=== PATIENT | female | born 1975 | race Hispanic/Latino ===

== ENCOUNTER → 2025-02-28 | Outpatient (CLI) | payer SELFPAY ==
[2025-02-28 13:34] LABS: AST(SGOT) 18 U/L (<=31); Alanine Aminotransfer ALT/SGPT 12 U/L (<=34); Albumin, Serum 4.2 g/dL (3.5-5.0); Alkaline Phosphatase 74 U/L (35-104); Anion Gap 9 (5-15); BUN 13 mg/dL (4-19); BUN/Creat Ratio 15.7 RATIO (10-20); Calcium,Total 9.5 mg/dL (7.6-11.0); Carbon Dioxide 24.2 mmol/L (21.0-32.0); Chloride 106 mmol/L (98-108); Globulin 2.8 g/dL (2.2-4.2); Glucose 114 mg/dL (70-99); Potassium 4.2 mmol/L (3.3-5.1)
[2025-02-28 13:47] LABS: Cholesterol 244 mg/dL (<=200); Low Density Lipoprotein Calc. 167 mg/dL; Triglycerides 103 mg/dL; Very Low Density Lipoprotein 21 mg/dL (5-40); cholesterol:hdl ratio screen 4.16
== END | disposition home or self-care (01) ==
LOC: VSLAB 08:28
PROVIDERS: PCP Nurse Practitioner Family; Visit Provider Nurse Practitioner Family
DX: Z13.1 Encounter for screening for diabetes mellitus (principal); Z13.220 Encounter for screening for lipoid disorders; F41.8 Other specified anxiety disorders
CPT/HCPCS: 36415; 80053; 80061; 83036

== ENCOUNTER 2025-03-14 16:43 | Outpatient (CLI) | payer SELFPAY ==
--- OUTSIDE RECORDS SUMMARY | 2025-03-14 16:58 | XMS RPT_ITS | CCD ---
Author Organization [facility] Care Team Providers Care Signals Collector/Analyst Name Role Phone Unavailable Primary Care Provider LOAN Maguire Referring LOAN Maguire Referring Mamie Jasso Attending Unavailable Mamie Powers Primary Care Unavailable Problems Problem Classification Problem Date Documented Da te Episodic/Chronic Nonmalignant breast conditions (1 source) Mastodynia; Translations: [Mastodynia] Onset: 05-31-2024 Episodic Other screening for suspected conditions (not mental disorders or infectious disease) (1 source) Encounter for screening for diabetes mellitus; Translations: [Encounter for screening for diabetes mellitus] Onset: 03-09-2025 Episodic Results Test Name Value Interpretation Reference Range Facility Comprehensive Metabolic Prof [facility] 02-28-2025 Albumin [Mass/Vol] 4.2 g/dL Normal 3.5-5.0 [facility] Comment on above: Performed By: #### L 500.4050, L501.9985, L500.4100 #### [facility] [address] [place], [address] Albumin/Globulin [Mass ratio] 1.5 {ratio} Normal 0.9-2.4 [facility] Comment on above: Performed By: #### L 500.4050, L501.9985, L500.4100 #### [facility] [address] [place], [address] ALK PHOS 74 U/L Normal 35-104 [facility] Comment on above: Performed By: #### L 500.4050, L501.9985, L500.4100 #### [facility] [address] [place], [address] ALT [Catalytic activity/Vol] 12 U/L Normal <=34 [facility] Comment on above: Performed By: #### L 500.4050, L501.9985, L500.4100 #### [facility] [address] [place], [address] AST [Catalytic activity/Vol] 18 U/L Normal <=31 [facility] Comment on above: Performed By: #### L 500.4050, L501.9985, L500.4100 #### [facility] [address] [place], [address] Bilirubin [Mass/Vol] 0.34 mg/dL Normal 0.00-1.[address] [facility] Comment on above: Performed By: #### L 500.4050, L501.9985, L500.4100 #### [facility] [address] [place], [address] BUN/CRE 15.7 RATIO Normal 10-20 [facility] Comment on above: Performed By: #### L 500.4050, L501.9985, L500.4100 #### [facility] [address] [place], [address] Calcium [Mass/Vol] 9.5 mg/dL Normal 7.6-11.0 [facility] Comment on above: Performed By: #### L 500.4050, L501.9985, L500.4100 #### [facility] [address] [place], [address] Chloride [Moles/Vol] 106 mmol/L Normal 98-[address] [facility] Comment on above: Performed By: #### L 500.4050, L501.9985, L500.4100 #### [facility] [address] [place], [address] CO2 [Moles/Vol] 24.2 mmol/L Normal 21.0-32.0 [facility] Comment on above: Performed By: #### L 500.4050, L501.9985, L500.4100 #### [facility] [address] [place], [address] Creatinine [Mass/Vol] 0.80 mg/dL Normal 0.70-1.20 [facility] Comment on above: Performed By: #### L 500.4050, L501.9985, L500.4100 #### [facility] [address] [place], [address] GAP 9 Normal 5-15 [facility] Comment on above: Performed By: #### L 500.4050, L501.9985, L500.4100 #### [facility] [address] [place], [address] GFR/1.73 sq M.predicted among non-blacks MDRD (S/P/Bld) [Vol rate/Area] 91 mL/min/{1.73_m2} Normal >60 [facility] Comment on above: Result Comment: mL/m in/1.73m2 CKD-EPI Creatinine Equation (2020) Performed By: #### L 500.4050, L501.9985, L500.4100 #### [facility] [address] [place], [address] Globulin (S) [Mass/Vol] 2.8 g/dL Normal 2.2-4.2 [facility] Comment on above: Performed By: #### L 500.4050, L501.9985, L500.4100 #### [facility] [address] [place], [address] Glucose [Mass/Vol] 114 mg/dL High 70-99 [facility] Comment on above: Performed By: #### L 500.4050, L501.9985, L500.4100 #### [facility] [address] [place], [address] Potassium [Moles/Vol] 4.2 mmol/L Normal 3.3-5.1 [facility] Comment on above: Performed By: #### L 500.4050, L501.9985, L500.4100 #### [facility] [address] [place], [address] Sodium [Moles/Vol] 139 mmol/L Normal 133-145 [facility] Comment on above: Performed By: #### L 500.4050, L501.9985, L500.4100 #### [facility] [address] [place], [address] T PROT 7.0 g/dL Normal 5.9-8.4 [facility] Comment on above: Performed By: #### L 500.4050, L501.9985, L500.4100 #### [facility] [address] [place], [address] Urea nitrogen [Mass/Vol] 13 mg/dL Normal 4-19 [facility] Comment on above: Performed By: #### L 500.4050, L501.9985, L500.4100 #### [facility] [address] [place], [address] Hemoglobin A1con 02-28-2025 HbA1c (Bld) [Mass fraction] 5.5 % Normal <=5.6 [facility] Comment on above: Result Comment: Norm al < 5.7 % Prediabetic 5.7 - 6.4 % Diabetic >or= 6.5 % Please note range changes. Performed By: #### L 500.4050, L501.9985, L500.4100 #### [facility] [address] [place], [address] Lipid Profileon 02-28-2025 CHOL:HDL 4.16 Normal [facility] Comment on above: Performed By: #### L 500.4050, L501.9985, L500.4100 #### [facility] [address] [place], [address] Cholesterol [Mass/Vol] 244 mg/dL High <=200 [facility] Comment on above: Result Comment: Chol esterol level, Desirable <200 mg/dL Borderline high cholesterol 200-239 mg/dL High cholesterol >=240 mg/dL Recommendations of the NCEP Adult Treatment Panel for the following risk-cutoff thresholds for the [place] population. Performed By: #### L 500.4050, L501.9985, L500.4100 #### [facility] [address] [place], [address] Cholesterol in HDL [Mass/Vol] 59 mg/dL Normal [facility] Comment on above: Result Comment: Mary onal Cholesterol Education Program (NCEP) guidelines: <40 mg/dL: Low HDL-cholesterol (major risk factor for CHD) >= 60 mg/dL: High HDL-cholesterol (negative risk factor for CHD) HDL-cholesterol is affected by a number of factors, e.g. smoking, exercise, hormones, sex and age. Performed By: #### L 500.4050, L501.9985, L500.4100 #### [facility] [address] [place], [address] Cholesterol in LDL [Mass/Vol] 167 mg/dL Normal [facility] Comment on above: Result Comment: Bord vqeolr=736-439 mg/dL Higher Lpfe=489 mg/dL or greater Oh Equation 2020 for LDL-C Performed By: #### L 500.4050, L501.9985, L500.4100 #### [facility] [address] [place], [address] Cholesterol in VLDL [Mass/Vol] 21 mg/dL Normal 5-40 [facility] Comment on above: Performed By: #### L 500.4050, L501.9985, L500.4100 #### [facility] [address] [place], [address] Triglyceride [Mass/Vol] 103 mg/dL Normal [facility] Comment on above: Result Comment: The drugs N-Acetylcysteine and Metamizole may falsely depress this assay. Normal range: <150 mg/dL Borderline High: 150-199 mg/dL High: 200-499 mg/dL Very High: >500 mg/dL Performed By: #### L 500.4050, L501.9985, L500.4100 #### [facility] [address] [place], [address] DBT Breast - bilateral diagn ostic for implanton 05-31-2024 IMPRESSION: There is no suspicious imaging finding to correspond with the focal pain in the upper outer quadrant of the right breast. Clinical follow up is recommended. There is no mammographic or sonographic evidence of malignancy in the imaged area. Return to annual screening mammogram is recommended. Annual mammogram will be due in 1 year. BI-RADS Category 1: Negative RISK: Based on the Tyrer-Cuzick (TC) risk assessment model, this patient has a 5.6% lifetime risk of developing breast cancer, meaning they are at average risk for developing breast cancer. However, this is only an estimate based on available history provided on the patient's questionnaire. We encourage all patients to talk with their providers about these results, further recommendations for managing breast health, and appropriate supplemental screening options if the patient has dense breast tissue. Interpreting Radiologist: Genna Pool M.D. Electronically signed on: 05/31/2024 IMPRESSION: There is no mammographic or sonographic evidence of malignancy in the imaged area. Return to annual screening mammogram is recommended. Annual mammogram will be due in 1 year. Test Clerk: REN Transcribe Date/Time: May 31 2024 12:30P Dictated by : GENNA POOL MD This examination was interpreted and the report reviewed and electronically signed by: GENNA POOL MD on May 31 2024 1:18PM [facility] RADIOLOGY [facility] * * *Final Report* * * DATE OF EXAM: May 31 2024 12:51PM LDW 0627 - LUIS ALBERTO DIAG Fausto MOMIN / PROCEDURE REASON: N64.4 Mastodynia * * * * Physician Interpretation * * * * [address] [address] #[id number] - [facility] PixelleG W VALENTINA LILIANE #[id number] - [facility] Fliplife BREAST LTD RT HISTORY: Patient is 48 years old and is seen for diagnostic evaluation of focal pain the right breast. Patient states no personal history of breast cancer. Patient states no personal history of other cancers. COMPARISON STUDIES: The present examination has been compared to a prior imaging study dated 05/31/2024 (ultrasound). MAMMOGRAM TECHNIQUE: The study was acquired using full field digital technology and interpreted from soft copy. Digital Breast Tomosynthesis (DBT) images were obtained and used to assist in the interpretation of this examination. MAMMOGRAM FINDINGS: The breasts are heterogeneously dense, which may obscure small masses. There are no suspicious mammographic findings to correspond with the focal pain in the upper outer quadrant of the right breast indicated by the triangle marker. No suspicious masses, calcifications or other abnormalities are seen in the left breast. ULTRASOUND TECHNIQUE: Targeted ultrasound of the indicated area was performed. Garcia scale images were saved. ULTRASOUND FINDINGS: There are no suspicious sonographic findings to correspond with the focal pain at the 10:00 - 11:00 position of the right breast. [facility] RADIOLOGY SY[facility] Provider, [facility] [place] - 05/31/2024 * * *Final Report* * * DATE OF EXAM: May 31 2024 12:51PM LDW 0627 - LUIS ALBERTO DIAG W VALENTINA LILIANE / PROCEDURE REASON: N64.4 Mastodynia * * * * Physician Interpretation * * * * [address] [address] #[id number] - LUIS ALBERTO DIAG W VALENTINA LILIANE #[id number] - [facility] Fli[employer]ife BREAST LTD RT HISTORY: Patient is 48 years old and is seen for diagnostic evaluation of focal pain the right breast. Patient states no personal history of breast cancer. Patient states no personal history of other cancers. COMPARISON STUDIES: The present examination has been compared to a prior imaging study dated 05/31/2024 (ultrasound). MAMMOGRAM TECHNIQUE: The study was acquired using full field digital technology and interpreted from soft copy. Digital Breast Tomosynthesis (DBT) images were obtained and used to assist in the interpretation of this examination. MAMMOGRAM FINDINGS: The breasts are heterogeneously dense, which may obscure small masses. There are no suspicious mammographic findings to correspond with the focal pain in the upper outer quadrant of the right breast indicated by the triangle marker. No suspicious masses, calcifications or other abnormalities are seen in the left breast. ULTRASOUND TECHNIQUE: Targeted ultrasound of the indicated area was performed. Garcia scale images were saved. ULTRASOUND FINDINGS: There are no suspicious sonographic findings to correspond with the focal pain at the 10:00 - 11:00 position of the right breast. IMPRESSION IMPRESSION: There is no suspicious imaging finding to correspond with the focal pain in the upper outer quadrant of the right breast. Clinical follow up is recommended. There is no mammographic or sonographic evidence of malignancy in the imaged area. Return to annual screening mammogram is recommended. Annual mammogram will be due in 1 year. BI-RADS Category 1: Negative RISK: Based on the Tyrer-Cuzick (TC) risk assessment model, this patient has a 5.6% lifetime risk of developing breast cancer, meaning they are at average risk for developing breast cancer. However, this is only an estimate based on available history provided on the patient's questionnaire. We encourage all patients to talk with their providers about these results, further recommendations for managing breast health, and appropriate supplemental screening options if the patient has dense breast tissue. Interpreting Radiologist: Genna Pool M.D. Electronically signed on: 05/31/2024 IMPRESSION: There is no mammographic or sonographic evidence of malignancy in the imaged area. Return to annual screening mammogram is recommended. Annual mammogram will be due in 1 year. Test Clerk: REN Transcribe Date/Time: May 31 2024 12:30P Dictated by : GENNA POOL MD This examination was interpreted and the report reviewed and electronically signed by: GENNA POOL MD on May 31 2024 1:18PM [facility] Radiology Study [facility]narrative) [facility] Ellis 2024 LUIS ALBERTO MOMIN * * *Final Report* * * DATE OF EXAM: May 31 2024 12:51PM LDW 0627 - LUIS ALBERTO MOMIN / PROCEDURE REASON: N64.4 Mastodynia * * * * Physician Interpretation * * * * [place] [address] #[id number] [facility] BLAYNE MOMIN #[id number] - [facility] US BREAST LTD RT HISTORY: Patient is 48 years old and is seen for diagnostic evaluation of focal pain the right breast. Patient states no personal history of breast cancer. Patient states no personal history of other cancers. COMPARISON STUDIES: The present examination has been compared to a prior imaging study dated 05/31/2024 (ultrasound). MAMMOGRAM TECHNIQUE: The study was acquired using full field digital technology and interpreted from soft copy. Digital Breast Tomosynthesis (DBT) images were obtained and used to assist in the interpretation of this examination. MAMMOGRAM FINDINGS: The breasts are heterogeneously dense, which may obscure small masses. There are no suspicious mammographic findings to correspond with the focal pain in the upper outer quadrant of the right breast indicated by the triangle marker. No suspicious masses, calcifications or other abnormalities are seen in the left breast. ULTRASOUND TECHNIQUE: Targeted ultrasound of the indicated area was performed. Garcia scale images were saved. ULTRASOUND FINDINGS: There are no suspicious sonographic findings to correspond with the focal pain at the 10:00 - 11:00 position of the right breast. IMPRESSION: There is no suspicious imaging finding to correspond with the focal pain in the upper outer quadrant of the right breast. Clinical follow up is recommended. There is no mammographic or sonographic evidence of malignancy in the imaged area. Return to annual screening mammogram is recommended. Annual mammogram will be due in 1 year. BI-RADS Category 1: Negative RISK: Based on the Tyrer-Cuzick (TC) risk assessment model, this patient has a 5.6% lifetime risk of developing breast cancer, meaning they are at average risk for developing breast cancer. However, this is only an estimate based on available history provided on the patient's questionnaire. We encourage all patients to talk with their providers about these results, further recommendations for managing breast health, and appropriate supplemental screening options if the patient has dense breast tissue. Interpreting Radiologist: Genna Pool M.D. Electronically signed on: 05/31/2024 IMPRESSION: There is no mammographic or sonographic evidence of malignancy in the imaged area. Return to annual screening mammogram is recommended. Annual mammogram will be due in 1 year. Test Clerk: REN Transcribe Date/Time: May 31 2024 12:30P Dictated by : GENNA POOL MD This examination was interpreted and the report reviewed and electronically signed by: GENNA POOL MD on May 31 2024 1:18PM EST [id number] CN Normal [facility] US BREAST LTD RTon 05-31 [facility] US BREAST LTD RT * * *Final Report* * * DATE OF EXAM: May 31 2024 1:09PM LDW 0594 - [facility] US BREAST LTD RT / PROCEDURE REASON: N64.4 Mastodynia * * * * Physician Interpretation * * * * [place] [address] #[id number] - [facility] CARLOSG W VALENTINA LILIANE #[id number] - [facility] US BREAST LTD RT HISTORY: Patient is 48 years old and is seen for diagnostic evaluation of focal pain the right breast. Patient states no personal history of breast cancer. Patient states no personal history of other cancers. COMPARISON STUDIES: The present examination has been compared to a prior imaging study dated 05/31/2024 (ultrasound). MAMMOGRAM TECHNIQUE: The study was acquired using full field digital technology and interpreted from soft copy. Digital Breast Tomosynthesis (DBT) images were obtained and used to assist in the interpretation of this examination. MAMMOGRAM FINDINGS: The breasts are heterogeneously dense, which may obscure small masses. There are no suspicious mammographic findings to correspond with the focal pain in the upper outer quadrant of the right breast indicated by the triangle marker. No suspicious masses, calcifications or other abnormalities are seen in the left breast. ULTRASOUND TECHNIQUE: Targeted ultrasound of the indicated area was performed. Garcia scale images were saved. ULTRASOUND FINDINGS: There are no suspicious sonographic findings to correspond with the focal pain at the 10:00 - 11:00 position of the right breast. IMPRESSION: There is no suspicious imaging finding to correspond with the focal pain in the upper outer quadrant of the right breast. Clinical follow up is recommended. There is no mammographic or sonographic evidence of malignancy in the imaged area. Return to annual screening mammogram is recommended. Annual mammogram will be due in 1 year. BI-RADS Category 1: Negative RISK: Based on the Tyrer-Cuzick (TC) risk assessment model, this patient has a 5.6% lifetime risk of developing breast cancer, meaning they are at average risk for developing breast cancer. However, this is only an estimate based on available history provided on the patient's questionnaire. We encourage all patients to talk with their providers about these results, further recommendations for managing breast health, and appropriate supplemental screening options if the patient has dense breast tissue. Interpreting Radiologist: Genna Pool M.D. Electronically signed on: 05/31/2024 IMPRESSION: There is no mammographic or sonographic evidence of malignancy in the imaged area. Return to annual screening mammogram is recommended. Annual mammogram will be due in 1 year. Test Clerk: REN Transcribe Date/Time: May 31 2024 1:04P Dictated by : GENNA POOL MD This examination was interpreted and the report reviewed and electronically signed by: GENNA POOL MD on May 31 2024 1:18PM EST [id number] CN Normal [facility] No Panel InformationOrdered By: Cc Provider on 05-31-2024 [facility] US Breast - right limitedon 05-31-2024 IMPRESSION: There is no suspicious imaging finding to correspond with the focal pain in the upper outer quadrant of the right breast. Clinical follow up is recommended. There is no mammographic or sonographic evidence of malignancy in the imaged area. Return to annual screening mammogram is recommended. Annual mammogram will be due in 1 year. BI-RADS Category 1: Negative RISK: Based on the Tyrer-Cuzick (TC) risk assessment model, this patient has a 5.6% lifetime risk of developing breast cancer, meaning they are at average risk for developing breast cancer. However, this is only an estimate based on available history provided on the patient's questionnaire. We encourage all patients to talk with their providers about these results, further recommendations for managing breast health, and appropriate supplemental screening options if the patient has dense breast tissue. Interpreting Radiologist: Genna Pool M.D. Electronically signed on: 05/31/2024 IMPRESSION: There is no mammographic or sonographic evidence of malignancy in the imaged area. Return to annual screening mammogram is recommended. Annual mammogram will be due in 1 year. Test Clerk: REN Transcribe Date/Time: May 31 2024 1:04P Dictated by : GENNA POOL MD This examination was interpreted and the report reviewed and electronically signed by: GENNA POOL MD on May 31 2024 1:18PM EST [facility] RADIOLOGY [facility] * * *Final Report* * * DATE OF EXAM: May 31 2024 1:09PM LDW 0594 - LUIS ALBERTO US BREAST LTD RT / PROCEDURE REASON: N64.4 Mastodynia * * * * Physician Interpretation * * * * [place] [id number] #[id number] - FZN BLAYNE MONTGOMERY LILIANE #[id number] - [facility] US BREAST LTD RT HISTORY: Patient is 48 years old and is seen for diagnostic evaluation of focal pain the right breast. Patient states no personal history of breast cancer. Patient states no personal history of other cancers. COMPARISON STUDIES: The present examination has been compared to a prior imaging study dated 05/31/2024 (ultrasound). MAMMOGRAM TECHNIQUE: The study was acquired using full field digital technology and interpreted from soft copy. Digital Breast Tomosynthesis (DBT) images were obtained and used to assist in the interpretation of this examination. MAMMOGRAM FINDINGS: The breasts are heterogeneously dense, which may obscure small masses. There are no suspicious mammographic findings to correspond with the focal pain in the upper outer quadrant of the right breast indicated by the triangle marker. No suspicious masses, calcifications or other abnormalities are seen in the left breast. ULTRASOUND TECHNIQUE: Targeted ultrasound of the indicated area was performed. Garcia scale images were saved. ULTRASOUND FINDINGS: There are no suspicious sonographic findings to correspond with the focal pain at the 10:00 - 11:00 position of the right breast. TEANECK RADIOLOGY SYNGO Provider, [facility] [place] - 05/31/2024 * * *Final Report* * * DATE OF EXAM: May 31 2024 1:09PM LDW 0594 - LUIS ALBERTO US BREAST LTD RT / PROCEDURE REASON: N64.4 Mastodynia * * * * Physician Interpretation * * * * [address] [address] #[id number] - ZXM BLAYNE MOMIN #[id number] - [facility] US BREAST LTD RT HISTORY: Patient is 48 years old and is seen for diagnostic evaluation of focal pain the right breast. Patient states no personal history of breast cancer. Patient states no personal history of other cancers. COMPARISON STUDIES: The present examination has been compared to a prior imaging study dated 05/31/2024 (ultrasound). MAMMOGRAM TECHNIQUE: The study was acquired using full field digital technology and interpreted from soft copy. Digital Breast Tomosynthesis (DBT) images were obtained and used to assist in the interpretation of this examination. MAMMOGRAM FINDINGS: The breasts are heterogeneously dense, which may obscure small masses. There are no suspicious mammographic findings to correspond with the focal pain in the upper outer quadrant of the right breast indicated by the triangle marker. No suspicious masses, calcifications or other abnormalities are seen in the left breast. ULTRASOUND TECHNIQUE: Targeted ultrasound of the indicated area was performed. Garcia scale images were saved. ULTRASOUND FINDINGS: There are no suspicious sonographic findings to correspond with the focal pain at the 10:00 - 11:00 position of the right breast. IMPRESSION IMPRESSION: There is no suspicious imaging finding to correspond with the focal pain in the upper outer quadrant of the right breast. Clinical follow up is recommended. There is no mammographic or sonographic evidence of malignancy in the imaged area. Return to annual screening mammogram is recommended. Annual mammogram will be due in 1 year. BI-RADS Category 1: Negative RISK: Based on the Tyrer-Cuzick (TC) risk assessment model, this patient has a 5.6% lifetime risk of developing breast cancer, meaning they are at average risk for developing breast cancer. However, this is only an estimate based on available history provided on the patient's questionnaire. We encourage all patients to talk with their providers about these results, further recommendations for managing breast health, and appropriate supplemental screening options if the patient has dense breast tissue. Interpreting Radiologist: Genna Pool M.D. Electronically signed on: 05/31/2024 IMPRESSION: There is no mammographic or sonographic evidence of malignancy in the imaged area. Return to annual screening mammogram is recommended. Annual mammogram will be due in 1 year. Test Clerk: REN Transcribe Date/Time: May 31 2024 1:04P Dictated by : GENNA POOL MD This examination was interpreted and the report reviewed and electronically signed by: GENNA POOL MD on May 31 2024 1:18PM EST [facility] Radiology Study observation (narrative) [facility] Encounters Encounter Date Encounter Type Care Provider Facility Start: 02-28-2025 End: 02-28-2025 ambulatory Mamie Powers Facility:[facility] Start: 05-31-2024 ambulatory LOAN WILSONNGER Fa cility:[facility] Start: 05-31-2024 End: 05-31-2024 Subsequent hospital visit by physician Mammo/Bone Density [facility] RADIO MAMMO [facility] Comment on above: Mastodynia [N64.4] Procedures Date Procedure Procedure Detail Performing Clinician Start: 05-31-2024 Us breast uni real t christie with image limited [facility] Provider Start: 05-31-2024 Digital breast tomos ynthesis bilateral [facility] Provider Plan of Treatment Date Care Activity Detail Author Start: 05-31-2025 Screening for malign ant neoplasm of breast Mammogram Screening [facility] Start: 01-08-2024 Covid-19 Vaccine ( season) Covid-19 Vaccine ( season) [facility] Start: 01-08-2024 Influenza vaccination Influenza Vacc ine (#1) [facility] Start: 11-13-2020 Diabetes Screening Diabetes Screenin g [facility] Start: 11-13-2020 Lipid panel Lipid Screening [facility] Start: 11-13-2020 Screening for malign ant neoplasm of colon [facility] Start: 11-13-1996 Screening for malign ant neoplasm of cervix Cervical Cancer Screening [facility] Start: 11-13-1994 Hepatitis B Vaccine (1 of 3 - 19+ 3-dose series) Hepatitis B Vaccine (1 of 3 - 19+ 3-dose series) [facility] Start: 11-13-1994 Urine microalbumin profile DTa P,Tdap,Td Vaccine (1 - Tdap) [facility] Start: 11-13-1993 Anxiety Screening Anxiety Screening [facility] Start: 11-13-1993 Depression Screening Depression Scre ening [facility] Start: 11-13-1993 Hepatitis C screening Hepatitis C Sc reening [facility] Start: 11-13-1993 HIV screening HIV Screening [facility] Payers Date Payer Category Payer Self-pay Unknown [id number] Social History Date Type Detail Facility Tobacco smoking stat us NHIS Tobacco smoking consumption unknown [facility] Start: 1975 Sex assigned at Not on file [facility] Gender identity Not on file [facility] in History of Present illness Narrative 05-31-2024 Lupe Arora TECHNOLOGIST - 05/31/2024 1:00 PM EST Note Date & Type Note Facility 05-31-2024 History of Presen t illness Narrative Radiology Service Progress Note PATIENT NAME: Kaylyn Gilmore DATE OF SERVICE: May 31, 2024 TIME: 1:11 PM PATIENT IDENTITY VERIFICATION COMPLETED USING TWO (2) IDENTIFIERS: Name and Date of confirmed by patient verbally. FALL SCREENING: Has the patient had 2 falls in the last year or 1 fall with injury or currently using an Ambulatory Assistive Device (Walker, Cane, Wheelchair, Crutches, etc.)? No PATIENT GENDER DATA: Assigned female at . status: : No status: NO. PATIENT RELEVANT IMPLANT DATA REVIEWED: Yes PATIENT PRESENTS WITH AN IMPLANTABLE OR ATTACHED STROBOROMA OPERATOR: No RADIOLOGY DEPARTMENT: Ultrasound PERIPHERAL IV DATA: Not applicable SIGNED BY: TECHNOLOGIST Chanel May 31, 2024 1:11 PM documented in this encounter [facility] Progress note 05-31-2024 Note Date & Type Note Facility 05-31-2024 Note HNO ID: [id number] Author: LUPE ARORA TECHNOLOGIST Service: ? Author Type: Technologist Type: Progress Notes Filed: 05/31/2024 13:11 Note Text: Radiology Service Progress Note PATIENT NAME: Kaylyn Gilmore DATE OF SERVICE: May 31, 2024 TIME: 1:11 PM PATIENT IDENTITY VERIFICATION COMPLETED USING TWO (2) IDENTIFIERS: Name and Date of confirmed by patient verbally. FALL SCREENING: Has the patient had 2 falls in the last year or 1 fall with injury or currently using an Ambulatory Assistive Device (Walker, Cane, Wheelchair, Crutches, etc.)? No PATIENT GENDER DATA: Assigned female at . status: : No status: NO. PATIENT RELEVANT IMPLANT DATA REVIEWED: Yes PATIENT PRESENTS WITH AN IMPLANTABLE OR ATTACHED STROBOROMA OPERATOR: No RADIOLOGY DEPARTMENT: Ultrasound PERIPHERAL IV DATA: Not applicable SIGNED BY: Lupe Arora TECHNOLOGIST May 31, 2024 1:11 PM [facility] History of Present illness Narrative 05-31-2024 Andrew Arthur RT(R) - 05/31/2024 12:30 PM EST Note Date & Type Note Facility 05-31-2024 History of Presen t illness Narrative Radiology Service Progress Note PATIENT NAME: Kaylyn Gilmore DATE OF SERVICE: May 31, 2024 TIME: 12:20 PM PATIENT IDENTITY VERIFICATION COMPLETED USING TWO (2) IDENTIFIERS: Name and Date of confirmed by patient verbally. FALL SCREENING: Has the patient had 2 falls in the last year or 1 fall with injury or currently using an Ambulatory Assistive Device (Walker, Cane, Wheelchair, Crutches, etc.)? No PATIENT GENDER DATA: Assigned female at . status: : No status: N/A PATIENT RELEVANT IMPLANT DATA REVIEWED: Not Applicable PATIENT PRESENTS WITH AN IMPLANTABLE OR ATTACHED STROBOROMA OPERATOR: No RADIOLOGY DEPARTMENT: Mammography PERIPHERAL IV DATA: Not applicable SIGNED BY: MARTIN Rodriguez) May 31, 2024 12:20 PM documented in this encounter [facility] Progress note 05-31-2024 Note Date & Type Note Facility 05-31-2024 Note HNO ID: [id number] Author: ANDREW ARTHUR RT (R) Service: Radiology Author Type: Technologist Type: Progress Notes Filed: 05/31/2024 12:20 Note Text: Radiology Service Progress Note PATIENT NAME: Kaylyn Gilmore DATE OF SERVICE: May 31, 2024 TIME: 12:20 PM PATIENT IDENTITY VERIFICATION COMPLETED USING TWO (2) IDENTIFIERS: Name and Date of confirmed by patient verbally. FALL SCREENING: Has the patient had 2 falls in the last year or 1 fall with injury or currently using an Ambulatory Assistive Device (Walker, Cane, Wheelchair, Crutches, etc.)? No PATIENT GENDER DATA: Assigned female at . status: : No status: N/A PATIENT RELEVANT IMPLANT DATA REVIEWED: Not Applicable PATIENT PRESENTS WITH AN IMPLANTABLE OR ATTACHED STROBOROMA OPERATOR: No RADIOLOGY DEPARTMENT: Mammography PERIPHERAL IV DATA: Not applicable SIGNED BY: RT Michael(R) May 31, 2024 12:20 PM [facility] Summary Purpose Family History No Family History Records FoundNo Family History Records Found Advance Directives No Advanced Directives Records FoundNo Advanced Directives Records Found Additional Source Comments Source Comments (unrecognize d section and content) In the event this informatio n is protected by the Federal Confidentiality of Alcohol and Drug Abuse Patient Records regulations: The Federal rules restrict any use of the information to criminally investigate or prosecute any alcohol or drug abuse patient.[facility] Reason for Visit (unrecogniz ed section and content) Specialty Diagnoses / Procedures Referred By Abisai lorenzana Referred To Contact [facility] Diagnoses check up Procedures DIAGNOSTIC MAMMOGRAPHY COMPUTER-AIDED DETCJ BI US BREAST UNI REAL TIME WITH IMAGE COMPLETE self pay [address], [address] [place] [address] [place] [address] Referral ID Status Reason Start Date Expiration Date Visits Requested Visits Authorized [id number] Authorized Financial Clearance Required - Self Pay Patient Cleared - Qualified HCAP/FA 4 07/18/2024 99 99 INFORMATION SOURCE (unrecogn ized section and content) DATE CREATED AUTHOR 06/02/2024 [facility] DATE CREATED AUTHOR AUTHOR'S ORGANIZ ATION 03/10/2025 [facility] FOR RECORDS PERTAINING TO PATIENTS WHO ARE OR HAVE BEEN ENROLLED IN A CHEMICAL DEPENDENCY/SUBSTANCEABUSE PROGRAM, SOME INFORMATION MAY BE OMITTED. This clinical summary was aggregated from multiple sources. Caution should be exercised in using it in the provision of clinical care. This summary normalizes information from multiple sources, and as a consequence, information in this document may materially change the coding, format and clinical context of patient data. In addition, data may be omitted in some cases. CLINICAL DECISIONS SHOULD BE BASED ON THE PRIMARY CLINICAL RECORDS. [facility]. provides no warranty or guarantee of the accuracy or completeness of information in this document.
== END 2025-03-14 23:59 | disposition home or self-care (01) ==
LOC: LABSPEC 16:47
PROVIDERS: PCP Nurse Practitioner Family; Referring Provider Surgery; Visit Provider Surgery
DX: D17.0 Benign lipomatous neoplasm of skin and subcutaneous tissue of head, face and neck (principal)
CPT/HCPCS: 88304; 88305